=== PATIENT | male | born 1995 | race Caucasian/White ===

== ENCOUNTER 2020-03-07 23:33 | Emergency (ER) | payer MEDICAID ==
[~2020-03-07] VITALS: Ht 188 cm; Wt 90.7 kg
[2020-03-07 23:34] VITALS: Ht 188 cm; Wt 90.7 kg
[2020-03-08 01:04] LABS: BASOPHIL % 0.2 % (0-2); PLATELET COUNT 221 x10^3mcL (130-400); RED CELL DISTRIBUTION WIDTH 14.2 % (11.5-14.5)
[2020-03-08 01:32] LABS: CALCIUM 8.6 mg/dL (8.5-10.1); CARBON DIOXIDE 27.6 mmol/L (21-32); CHLORIDE SERUM 103 mmol/L (98-107); GFR1 > 60 mL/min; GLUCOSE SERUM 120 mg/dL (74-106); POTASSIUM SERUM 3.5 mmol/L (3.5-5.1); SODIUM SERUM 143 mmol/L (136-145)
[2020-03-08 01:36] LABS: ALKALINE PHOSPHATASE 75 U/L (46-116); ALT/SGPT 50 U/L (16-63); AST/SGOT 57 U/L (15-37); BILIRUBIN TOTAL 0.2 mg/dL (0.20-1.00); TOTAL PROTEIN, SERUM 7.3 g/dL (6.4-8.2)
[2020-03-08 02:51] VITALS: BP 126/71
== END 2020-03-08 02:51 | disposition home or self-care (01) ==
LOC: ED 23:33
PROVIDERS: Emergency Medicine
DX: F10.20 Alcohol dependence, uncomplicated (principal); R11.10 Vomiting, unspecified
CPT/HCPCS: G0480; J2310; J2405; J3411; J3490; J7030

== ENCOUNTER 2020-09-21 15:11 | Emergency (ER) | payer OTHER ==
[~2020-09-21] VITALS: Ht 193 cm; Wt 88.9 kg
[2020-09-21 15:22] VITALS: BP 126/90; Ht 193 cm; Wt 88.9 kg
== END 2020-09-21 15:58 | disposition left against medical advice (07) ==
LOC: ED 15:11
DX: Z53.21 Procedure and treatment not carried out due to patient leaving prior to being seen by health care provider (principal)